=== PATIENT | female | born 1980 | race Caucasian/White ===

== ENCOUNTER 2017-03-17 15:54 | Emergency (ER) | payer OTHER ==
--- NOTE | ~2017-03-17 | CR63 ---
[facility] A Service of [facility] & [facility] / [facility] RADIOLOGY TEXT RESULTS PATIENT: TEMI VIDAL LOCATION: CFTX : 76 UNIT #: [id number] AGE: [address]: Zeenat Brown APRN SEX: F ORDER DR: [id number] [facility] [address] [place], [place] [address] [id number] E MR#: [id number] Acc #: [id number] NAME: TEMI VIDAL : 1980 SEX: F STUDY DATE/TIME: 03/17/2017 15:02 UNIT: [facility] ROOM: STUDY DESCRIPTION: CR Chest 2 View Attending Physician: Zeenat Brown A.P.R.N. Ordering Physician: Ed Doc Kale Burris Primary Care Physician: No Primary Care Physician MEDICAL IMAGING REPORT This report is preliminary unless electronic signature is present EXAM Two-view chest, 03/17/2017. HISTORY 36-year-old female with shortness of air and cough for 1 week. COMPARISON Chest, 07/01/2016. FINDINGS 2 views of the chest demonstrate clear lungs. No pleural effusion or pneumothorax. Heart size and mediastinum are normal. Pulmonary vasculature normal. IMPRESSION No acute cardiopulmonary findings. Dictated by... Thierry Garcia M.D. THIS IS AN ELECTRONICALLY VERIFIED REPORT Thierry Garcia M.D. at 03/18/2017 6:38 PM JOSUE/nadia TD: 03/17/2017 16:40 JOB #: [id number] MEDICAL IMAGING REPORT Page 1 of 1 COPY
== END 2017-03-17 16:07 | disposition home or self-care (01) ==
LOC: CFTX 15:54
DX: J20.9 Acute bronchitis, unspecified (principal); Z20.818 Contact with and (suspected) exposure to other bacterial communicable diseases; J45.909 Unspecified asthma, uncomplicated; F17.210 Nicotine dependence, cigarettes, uncomplicated; Z88.5 Allergy status to narcotic agent; Z88.8 Allergy status to other drugs, medicaments and biological substances
CPT/HCPCS: 71020; 94640; 99283